=== PATIENT | male | born 1990 | race African-American/Black ===

== ENCOUNTER 2019-07-06 04:20 | Emergency (ER) | payer MEDICAID ==
[2019-07-06] MEDS ORDERED: Morphine 10 MG/ML VIAL (1 ml) IV ONE ×2 (04:45→05:29)
[2019-07-06] MEDS ORDERED: PROCHLORPERAZINE INJ 5 MG/ML 2 ML VIAL IV ONE ×2 (04:45)
--- NOTE | 2019-07-06 04:51 | ED ---
Abdominal Pain/Male - HPI Summary HPI Summary: This pt is a 28 Y/O M presenting to [facility] with a CC of suprapubic abdominal pain that is rated a 10/10 in severity. He states that the pain has been present since 07/04/2019. He states that the pain has been worsening since the onset. He has been having N/V/D since the onset with chills. He also reports episodes of hematuria. He denies any fevers, headaches, SOB, CP, and sore throat. He states that the pain is aggravated when he takes a deep breath. He has no alleviating factors. He has no pertinent PMHx. - History of Current Complaint Chief Complaint: EDAbdPain Stated Complaint: FLANK PAIN PER PT Time Seen by Provider: 07/06/19 04:42 Hx Obtained From: Patient Onset/Duration: Sudden Onset, Lasting Days - 3, Still Present Timing: Constant, Lasting Days - 3 Severity Initially: Mild Severity Currently: Severe Pain Intensity: 10 Pain Scale Used: 0-10 Numeric Location: Suprapubic Radiates: No Character: Colicy Aggravating Factor(s): Deep Breaths Alleviating Factor(s): Nothing Associated Signs And Symptoms: Positive: Urinary Symptoms - hematuria, Nausea, Vomiting, Diarrhea, Other - chills. Negative: Diaphoresis, Fever, Chest Pain - Allergies/Home Medications Allergies/Adverse Reactions: Allergies Allergy/AdvReac Type Severity Reaction Status Date / Time No Known Allergies Allergy Verified 07/06/19 04:23 Home Medications: Home Medications Sulfamethox/Trimethoprim DS* [Bactrim DS 800/160 TAB*] 1 tab PO BID #20 tab [Rx] oxyCODONE/Acetamin 5/325 MG* [Percocet 5/325 TAB*] 2 tab PO Q4H PRN #15 tab MDD 6 07/06/19 [Rx] PMH/Surg Hx/FS Hx/Imm Hx Previously Healthy: Yes Endocrine/Hematology History: Denies: Hx Diabetes Cardiovascular History: Denies: Hx Hypertension Musculoskeletal History: Reports: Other Musculoskeletal History - Left leg broken twice - Cancer History Hx Hematologic Symptoms: No Hx Chemotherapy: No - Surgical History Surgical History: None - Immunization History Immunizations Up to Date: Yes Infectious Disease History: No Infectious Disease History: Denies: Traveled Outside the [place] in Last 30 Days - Family History Known Family History: Negative: Hypertension, Diabetes - Social History Occupation: Employed Full-time Lives: Alone Alcohol Use: Rare Hx Substance Use: No Substance Use Type: Reports: None Hx Tobacco Use: Yes Smoking Status (MU): Light Every Day Tobacco Smoker Review of Systems Positive: Chills. Negative: Fever Negative: Chest Pain Negative: Shortness Of Breath Positive: Abdominal Pain, Vomiting, Diarrhea, Nausea All Other Systems Reviewed And Are Negative: Yes Physical Exam - Summary Physical Exam Summary: Appearance: Well-appearing, Well-nourished, ameriac[place] man in obvious pain, appearing colicy. Skin: Warm, dry, no obvious rash Eyes: sclera anicteric, no conjunctival pallor ENT: mucous membranes moist, pharynx appears normal Neck: Supple, nontender Respiratory: Clear to auscultation, no signs of respiratory distress Cardiovascular: Normal S1, S2. No murmurs. Normal distal pulses in tibial and radial bilaterally. Abdomen: Soft, pt is indicated lower abdomen as site of pain but is unable to locate exact region. He is too apprehensive to accurately take abdominal exam. Will re-exam after pain medication given. Musculoskeletal: Normal, Strength/ROM Intact Neurological: A&Ox3, awake and alert, mentation is normal, speech is fluent and appropriate Psychiatric: affect is normal, does not appear anxious or depressed Triage Information Reviewed: Yes Vital Signs On Initial Exam: Initial Vitals Temp Pulse Resp BP Pulse Ox 98.3 F 67 18 151/91 99 07/06/19 04:21 07/06/19 04:21 07/06/19 04:21 07/06/19 04:21 07/06/19 04:21 Vital Signs Reviewed: Yes Procedures - Sedation Patient Received Moderate/Deep Sedation with Procedure: No Diagnostics - Vital Signs Vital Signs Temp Pulse Resp BP Pulse Ox 07/06/19 04:21 98.3 F 67 18 151/91 99 - Laboratory Result Diagrams: 07/06/19 05:02 07/06/19 05:02 Lab Statement: Any lab studies that have been ordered have been reviewed, and results considered in the medical decision making process. Re-Evaluation - Re-Evaluation First Eval Re-Evaluation Time: 06:20 Change: Unchanged Comment: His PE after medication shows he has generalized abdominal tenderness without no acute foci. Abdominal Pain Male Course/Dx - Course Course Of Treatment: This pt is a 28 Y/O M presenting to [facility] with a CC of suprapubic abdominal pain that is rated a 10/10 in severity. He states that the pain has been present since 07/04/2019. He states that the pain has been worsening since the onset. He has been having N/V/D since the onset with chills. He also reports episodes of hematuria. His PE shows collicy pain with the pt is indicated lower abdomen as site of pain but is unable to locate exact region. He is too apprehensive to accurately take abdominal exam. Will re-exam after pain medication given. His lactic acid test showed a value of 3.7. He had red urine during his urine lab tests. His PE after medication shows he has generalized abdominal tenderness without no acute foci. He will be a sign out to Dr. Laura at shift change 0700 07/06/[address] A/P and disposition. - Diagnoses Provider Diagnoses: Abdominal pain - Critical Care Time Critical Care Statement: Critical care time is provided exclusive of any time spent performing procedures. Discharge ED - Sign-Out/Discharge Documenting (check all that apply): Sign-Out Patient Signing out patient TO: Moisés Laura - Discharge Plan Condition: Stable Disposition: HOME Prescriptions: oxyCODONE/Acetamin 5/325 MG* [Percocet 5/325 TAB*] 2 tab PO Q4H PRN #15 tab MDD 6 PRN Reason: Pain - Severe Sulfamethox/Trimethoprim DS* [Bactrim DS 800/160 TAB*] 1 tab PO BID #20 tab Patient Education Materials: Urinary Tract Infection in Men (ED) Referrals: Dawson Walker MD [Medical Doctor] - 3 Days (if not improving) - Billing Disposition and Condition Condition: STABLE Disposition: Home - Attestation Statements Document Initiated by Lucianaibe: Yes Documenting Scribe: Solomon Baez Provider For Whom Nic is Documenting (Include Credential): Deng Holder MD Scribe Attestation: Solomon Lucio scribed for Deng Holder MD on 07/10/19 at 2105. Scribe Documentation Reviewed: Yes Provider Attestation: The documentation as recorded by the Solomon gaming accurately reflects the service I personally performed and the decisions made by me, Deng Holder MD Status of Scribe Document: Viewed
[2019-07-06 04:56] LABS: Urine Color Red
[2019-07-06] MEDS: NS 0.9% 1000 ML** 2,000 ML IV ONE (04:56)
[2019-07-06 05:05] LABS: Urine Appearance Turbid; Urine Bacteria Absent (Absent); Urine Bilirubin Negative (Negative); Urine Blood 3+ (Negative); Urine Glucose Negative (Negative); Urine Ketones Negative (Negative); Urine Nitrite Negative (Negative); Urine Protein Negative (Negative); Urine Red Blood Cell 3+(>10/hpf) (Absent); Urine Specific Gravity 1.017 (1.010-1.030); Urine Urobilinogen Negative (Negative); Urine White Blood Cell Trace(0-5/hpf) (Absent)
[2019-07-06 05:21] LABS: ABS Basophils 0.1 10^3/ul (0-0.2); ABS Eosinophils 0.1 10^3/ul (0-0.6); ABS Monocytes 0.5 10^3/ul (0-0.8); ABS Neutrophils 2.8 10^3/ul (1.5-7.7); Eosinophil % 1.1 %; Hematocrit 50 % (42-52); Lymphocyte % 36.7 %; Mean Corpuscular HGB Conc 34 g/dL (31-36); Mean Corpuscular Hemoglobin 31 pg (27-31); Mean Corpuscular Volume 92 fL (80-94); Nucleated Red Blood Cells % 0.2; Platelet Count 172 10^3/uL (150-450); Red Blood Count 5.45 10^6 /uL (4.18-5.48); Red Cell Distribution Width 13 % (10-15); White Blood Count 5.4 10^3/uL (3.5-10.8)
[2019-07-06 05:37] LABS: ALT 47 U/L (7-52); AST 38 U/L (13-39); Albumin 4.4 g/dL (3.2-5.2); Albumin/Globulin Ratio 1.4 (1-3); Alkaline Phosphatase 71 U/L (34-104); Anion Gap 10 mmol/L (2-11); BUN/Creatinine Ratio 14.1 (8-20); Blood Urea Nitrogen 19 mg/dL (6-24); C Reactive Protein < 1.00 mg/L (<8.01); CO2 Carbon Dioxide 26 mmol/L (22-32); Calcium 9.6 mg/dL (8.6-10.3); Chloride 99 mmol/L (101-111); EGFR African American 76.1 (>60); EGFR Non-African American 62.9 (>60); Globulin 3.1 g/dL (2-4); Glucose 114 mg/dL (70-100); Potassium 3.4 mmol/L (3.5-5.0); Sodium 135 mmol/L (135-145); Total Protein 7.5 g/dL (6.4-8.9)
[2019-07-06] MEDS ORDERED: Iohexol 300* (CONTRAST) 10 ML SDV IV ONE (06:12)
--- NOTE | 2019-07-06 07:04 | ED ---
Progress - Progress Note Progress Note: Pt was diagnosed with abdominal pain; prescribed PO oxycodone/acetamin and PO sulfametox; and discharged to home by Dr. Holder. Re-Evaluation - Re-Evaluation First Eval Re-Evaluation Time: 06:20 Change: Unchanged Comment: His PE after medication shows he has generalized abdominal tenderness without no acute foci. Course/Dx - Course Course Of Treatment: This pt is a 28 Y/O M presenting to [facility] with a CC of suprapubic abdominal pain that is rated a 10/10 in severity. He states that the pain has been present since 07/04/2019. He states that the pain has been worsening since the onset. He has been having N/V/D since the onset with chills. He also reports episodes of hematuria. His PE shows collicy pain with the pt is indicated lower abdomen as site of pain but is unable to locate exact region. He is too apprehensive to accurately take abdominal exam. Will re-exam after pain medication given. His lactic acid test showed a value of 3.7. He had red urine during his urine lab tests. His PE after medication shows he has generalized abdominal tenderness without no acute foci. CT abd/pel showed the followin. Question of minimal nonspecific colitis from the hepatic flexure to the. rectum. 2. Fatty infiltration of the liver. 3. Otherwise negative CT abdomen/pelvis. Pt was given 1g PO azithromycin, 10mg IV morphine sulfate, 10mg IV Compazine, and 1 tab Bactrim. Pt was diagnosed with abdominal pain; prescribed PO oxycodone/acetamin and PO sulfametox; and discharged to home by Dr. Holder. - Diagnoses Provider Diagnoses: Abdominal pain - Critical Care Time Critical Care Statement: Critical care time is provided exclusive of any time spent performing procedures. Discharge ED - Sign-Out/Discharge Documenting (check all that apply): Patient Departure - dc - Discharge Plan Condition: Stable Disposition: HOME Prescriptions: oxyCODONE/Acetamin 5/325 MG* [Percocet 5/325 TAB*] 2 tab PO Q4H PRN #15 tab MDD 6 PRN Reason: Pain - Severe Sulfamethox/Trimethoprim DS* [Bactrim DS 800/160 TAB*] 1 tab PO BID #20 tab Patient Education Materials: Urinary Tract Infection in Men (ED) Referrals: Dawson Walker MD [Medical Doctor] - 3 Days (if not improving) - Attestation Statements Document Initiated by Scribe: Yes Documenting Scribe: John Adler Provider For Whom Scribe is Documenting (Include Credential): Moisés Laura MD Scribe Attestation: John Lucio, scribed for Moisés Laura MD on 07/06/19 at 1040. Status of Scribe Document: Ready
[2019-07-06] MEDS ORDERED: Azithromycin TAB* 250 MG PO ONE ×2 (07:06)
[2019-07-06] MEDS ORDERED: cefTRIAXone VIAL(*) 250 MG VIAL IM ONE (07:06)
[2019-07-06] MEDS ORDERED: Lidocaine 1% MPF ** 5 ML VIAL IM ONE (07:06)
[2019-07-06] MEDS ORDERED: Sulfamethox/Trimethoprim DS 800/160* TAB PO ONE (07:07)
[2019-07-06] MEDS ORDERED: cefTRIAXone(*) 1 GM in NS 0.9% 50 ML* 50 ML IVPB ONE ×4 (07:48)
[2019-07-06 08:37] VITALS: BP 136/51
== END 2019-07-06 08:36 | disposition home or self-care (01) ==
LOC: ED 04:20
DX: R10.9 Unspecified abdominal pain (principal); R11.2 Nausea with vomiting, unspecified; R19.7 Diarrhea, unspecified; F17.210 Nicotine dependence, cigarettes, uncomplicated
CPT/HCPCS: 36415; 74177; 80053; 81003; 81015; 83605; 83690; 85025; 86140; 87086; 96361; 96365; 96375; 99284; A9270-GY; J0696; J0780; J2270; Q9967